=== PATIENT | male | born 1980 | race African-American/Black ===

== ENCOUNTER 2018-11-27 10:43 | Emergency (ER) | payer MEDICAID ==
[~2018-11-27] VITALS: Ht 177.8 cm; Wt 71.7 kg
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
[2018-11-27 10:51] VITALS: BP 113/80
[2018-11-27] MEDS ORDERED: Acetaminophen 500mg (ES) tab ORAL ONE (11:15)
[2018-11-27] MEDS ORDERED: ROBAXIN-750750 MG PO (11:18)
[2018-11-27] MEDS ORDERED: NAPROXEN250 MG ORAL (11:18)
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
[2018-11-27 11:50] VITALS: BP 113/80
--- NOTE | 2018-11-27 11:50 | NUR ---
ER DISCHARGE NOTE: Patient is cleared to be discharged per ERMD DR MENDOZA, pt is aox4, on room air, with stable vital signs. pt was given dc and prescription instructions, pt was able to verbalize understanding, pt id band removed without complications. pt is able to ambulate with steady gait. pt took all belongings.
== END 2018-11-27 11:48 | disposition home or self-care (01) ==
LOC: EMR 11:40
DX: M54.6 Pain in thoracic spine (principal); F17.200 Nicotine dependence, unspecified, uncomplicated
CPT/HCPCS: 99282